=== PATIENT | male | born 1985 | race Native Hawaiian/Other Pacific Islander ===

== ENCOUNTER 2017-07-20 23:54 | Emergency (ER) | payer MEDICAID ==
[2017-07-21 00:28] VITALS: BP 153/74; PULSE 65; RESP 16; TEMP 99.6; O2SAT 100
--- NOTE | 2017-07-21 01:23 | ED PDOC ---
HPI: Male Pain Time Seen by Provider: 07/21/17 00:44 Chief Complaint (Nursing): Groin Pain Chief Complaint (Provider): Groin Pain History Per: Patient History/Exam Limitations: no limitations Onset/Duration Of Symptoms: Gradual (x1 year), Worse Since (x2 months) Current Symptoms Are (Timing): Still Present Additional Complaint(s): 32 year old male presents to ED with complaints of gradual groin discomfort x1 year and has a past medical history of HPV. Patient states he has been experiencing moderate lymph node discomfort that became mildly painful x2 months ago and much worse today. Patient notes concern because he noticed that his lymph node in the groin area became "hard". (-) fever, ulcers, wounds, urinary symptoms, or discharge. PCP: Linda Paniagua Past Medical History Reviewed: Historical Data, Nursing Documentation, Vital Signs Vital Signs: Last Vital Signs Temp 99.6 F 07/21/17 00:26 Pulse 65 07/21/17 00:26 Resp 16 07/21/17 00:26 BP 153/74 H 07/21/17 00:26 Pulse Ox 100 07/21/17 00:26 - Medical History PMH: Denies: No Chronic Diseases Other PMH: HPV STI - Family History Family History: States: No Known Family Hx - Living Arrangements Living Arrangements: With Family - Allergies Allergies/Adverse Reactions: Allergies Allergy/AdvReac Type Severity Reaction Status Date / Time cheese Allergy RASH Verified 07/21/17 00:26 Milk Containing Products Allergy RASH Verified 07/21/17 00:26 Review of Systems ROS Statement: Except As Marked, All Systems Reviewed And Found Negative Constitutional: Negative for: Fever Genitourinary Male: Positive for: Other (groin pain). Negative for: Dysuria, Frequency, Incontinence, Hematuria, Penile Discharge Physical Exam - Reviewed Nursing Documentation Reviewed: Yes Vital Signs Reviewed: Yes - Physical Exam Appears: Positive for: Non-toxic, No Acute Distress. Negative for: Uncomfortable Eye Exam: Positive for: Normal appearance, EOMI, PERRL Respiratory: Negative for: Respiratory Distress Male Genital Exam: Positive for: normal genitalia, other (patient portal representative: ANJANA Taylor). Negative for: epididymal tenderness, scrotum tenderness (R), scrotum tenderness (L), testicular tenderness (R), testicular tenderness (L) - ECG O2 Sat by Pulse Oximetry: 100 (RA) Pulse Ox Interpretation: Normal Medical Decision Making Medical Decision Makin Initial impression: testicular pain, groin pain DDx: epididymitis, r/o testicular torsion, varicocele Initial plan: * UDip * Chlamydia/GC RNA * US TESTICULAR 0130 Discussed with patient that because groin and testicular pain is acute, will do US TESTICULAR to rule out testicular torsion. 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 Provider advised patient that he cannot diagnose or give advice regarding this condition and that the patient needs to follow up with PCP and urologist. 0353 US FINDINGS: Right testicle: Appears small in size compared with the left testicle, measuring 2.3 x 1.1 x 2.1 cm. No masses visualized. Flow seen in the right testicle on color and Doppler imaging , with no evidence of torsion. Right epididymis: Within normal limits in appearance. Measures 8 x 7 x 4 mm. Left testicle: Within normal limits in appearance. Measures 3.8 x 2.5 x 3.5 cm. Flow seen in the left testicle on color and Doppler imaging, with no evidence of torsion. Left epididymis: Within normal limits in appearance. Measures 12 x 7 x 7 mm. Hydrocoele: None seen. Varicocele: Bilateral varicoceles noted. Other findings: Multiple small lymph nodes seen in the left groin region, in the area of pain, none of which appear pathologically enlarged. IMPRESSION: No evidence of testicular torsion or epididymitis. Bilateral varicoceles. Asymmetry in testicular size, with the right testis appearing smaller than the left. This finding is of uncertain etiology and clinical significance. Small lymph nodes in the left groin, with no evidence of pathological lymphadenopathy. See above for remaining findings. Upon re-evaluation, patient is stable for discharge home. Dx: groin pain, varicocele, lymph node symptom Scribe Attestation: Documented by Delmis Tavarez acting as a scribe for Adalberto Brown MD. Scribe Attestation: All medical record entries made by the Scribe were at my direction and personally dictated by me. I have reviewed the chart and agree that the record accurately reflects my personal performance of the history, physical exam, medical decision making, and the department course for this patient. I have also personally directed, reviewed, and agree with the discharge instructions and disposition. Disposition - Clinical Impression Clinical Impression: Varicocele, Groin pain, Lymph node symptom - Disposition Referrals: Al Li Jr., MD [Staff Provider] - Linda Paniagua MD [Primary Care Provider] - Disposition: Routine/Home Disposition Time: 04:00 Condition: GOOD Additional Instructions: Take advil for pain. Follow up with your PCP and urologist within 4-5 days Instructions: Varicocele (ED), Groin Pain (ED)
--- NOTE | 2017-07-21 03:53 | US ---
EXAM: US Scrotum EXAM DATE/TIME: 07/21/2017 1:35 AM CLINICAL HISTORY: 32 years old, male; Pain; Groin pain and scrotum pain; Patient HX: Pt states on/off discomfort <6months, groin pain x few days; Additional info: Left testicular pain groin pain TECHNIQUE: Real-time ultrasound of the scrotum with color Doppler and image documentation. COMPARISON: No relevant prior studies available. FINDINGS: Right testicle: Appears small in size compared with the left testicle, measuring 2.3 x 1.1 x 2.1 cm. No masses visualized. Flow seen in the right testicle on color and Doppler imaging, with no evidence of torsion. Right epididymis: Within normal limits in appearance. Measures 8 x 7 x 4 mm. Left testicle: Within normal limits in appearance. Measures 3.8 x 2.5 x 3.5 cm. Flow seen in the left testicle on color and Doppler imaging, with no evidence of torsion. Left epididymis: Within normal limits in appearance. Measures 12 x 7 x 7 mm. Hydrocoele: None seen. Varicocele: Bilateral varicoceles noted. Other findings: Multiple small lymph nodes seen in the left groin region, in the area of pain, none of which appear pathologically enlarged. IMPRESSION: No evidence of testicular torsion or epididymitis. Bilateral varicoceles. Asymmetry in testicular size, with the right testis appearing smaller than the left. This finding is of uncertain etiology and clinical significance. Small lymph nodes in the left groin, with no evidence of pathological lymphadenopathy. See above for remaining findings.
== END 2017-07-21 04:12 | disposition home or self-care (01) ==
LOC: H.ER 23:54
DX: I86.1 Scrotal varices (principal)

== ENCOUNTER 2017-08-28 13:55 | Emergency (ER) | payer MEDICAID ==
[2017-08-28 14:15] VITALS: BP 103/63; PULSE 76; RESP 16; TEMP 98.4; O2SAT 100
--- NOTE | 2017-08-28 14:49 | ED PDOC ---
HPI: Male Pain Time Seen by Provider: 08/28/17 14:18 Chief Complaint (Nursing): Male Genitourinary Chief Complaint (Provider): Male Genitourinary, Groin Pain History Per: Patient History/Exam Limitations: no limitations Onset/Duration Of Symptoms: Days (x1) Current Symptoms Are (Timing): Still Present Associated Symptoms: denies: Fever, Chills, Nausea, Vomiting, Diarrhea, Back Pain, Urinary Symptoms Additional Complaint(s): 32 year old male with a past medical history of varicocele and epididymitis presents to the ER for evaluation of groin pain, onset last night. Patient states that during his last visit to the ER he was diagnosed with varicocele but was negative for epididymitis. He reports visiting his PMD s/p ER visit, who diagnosed him with epididymitis and recommended he use a warm towel on his groin. Last night, patients states that as he attempted to use the towel, he felt pain to the right side of his groin which prompted his visit today. He denies any fever, chills, back pain, nausea, vomiting, diarrhea, or incontinence. Patient offers no other medical complaints at this time. PMD: non [facility] provider, Demetri Past Medical History Reviewed: Historical Data, Nursing Documentation, Vital Signs Vital Signs: Last Vital Signs Temp 98.4 F 08/28/17 14:11 Pulse 76 08/28/17 14:11 Resp 16 08/28/17 14:11 BP 103/63 08/28/17 14:11 Pulse Ox 100 08/28/17 14:11 - Medical History Other PMH: varicocele and epididymitis - Surgical History Surgical History: No Surg Hx - Family History Family History: States: Unknown Family Hx - Home Medications Home Medications: Ambulatory Orders Medication Instructions Recorded traMADol [Ultram] 50 mg PO Q6H PRN #15 tab 08/28/17 - Allergies Allergies/Adverse Reactions: Allergies Allergy/AdvReac Type Severity Reaction Status Date / Time cheese Allergy RASH Verified 07/21/17 00:26 Milk Containing Products Allergy RASH Verified 07/21/17 00:26 Review of Systems ROS Statement: Except As Marked, All Systems Reviewed And Found Negative Constitutional: Negative for: Fever, Chills Gastrointestinal: Negative for: Nausea, Vomiting, Diarrhea Genitourinary Male: Positive for: Other (pain to right side of testes). Negative for: Incontinence Musculoskeletal: Negative for: Back Pain Physical Exam - Reviewed Nursing Documentation Reviewed: Yes Vital Signs Reviewed: Yes - Physical Exam Appears: Positive for: Well, Non-toxic, No Acute Distress Head Exam: Positive for: ATRAUMATIC, NORMAL INSPECTION, NORMOCEPHALIC Skin: Positive for: Normal Color, Warm, DRY Eye Exam: Positive for: Normal appearance ENT: Positive for: Normal ENT Inspection Neck: Positive for: Normal, Painless ROM Cardiovascular/Chest: Positive for: Regular Rate, Rhythm Respiratory: Positive for: Normal Breath Sounds. Negative for: Accessory Muscle Use, Respiratory Distress Male Genital Exam: Positive for: normal genitalia, no hernia, other (Pt reports pain and superiro testicle however area is non-tender) Back: Positive for: Normal Inspection Extremity: Positive for: Normal ROM Neurologic/Psych: Positive for: Alert, Oriented - ECG O2 Sat by Pulse Oximetry: 100 (RA) Pulse Ox Interpretation: Normal Medical Decision Making Medical Decision Making: Time: 14:20 Impression: 32 year old male with groin pain Plan: --Testicular US Testicular US: FINDINGS: RIGHT TESTICLE: Measures 3.0 x 1.3 x 1.8 cm and remains smaller than the left testicle. Normal echotexture and flow. RIGHT EPIDIDYMIS: Epididymal head measures 0.76 x 0.56 x 0.97 cm. Grossly unremarkable appearance with normal flow. LEFT TESTICLE: Measures 4.3 x 1.9 x 2.8 cm. Normal echotexture and flow. LEFT EPIDIDYMIS: Epididymal head measures 0.9 x 0.9 x 1.09 cm. Grossly unremarkable appearance with normal flow. HYDROCELE: None. VARICOCELE: Small left-sided varicocele OTHER FINDINGS: None. IMPRESSION: Mild asymmetry of the testicles the left-sided which is slightly larger than the right nonspecific. Both testicles exhibit arterial flow. Small left-sided varicocele Scribe Attestation: Documented by Carmencita Paredes, acting as a scribe for Miya Wade PA-C Provider Scribe Attestation: All medical record entries made by the Scribe were at my direction and personally dictated by me. I have reviewed the chart and agree that the record accurately reflects my personal performance of the history, physical exam, medical decision making, and the department course for this patient. I have also personally directed, reviewed, and agree with the discharge instructions and disposition. Disposition - Clinical Impression Clinical Impression: Varicocele - Patient ED Disposition Is Patient to be Admitted: No Counseled Patient/Family Regarding: Diagnosis, Need For Followup - Disposition Disposition: Routine/Home Disposition Time: 18:20 Condition: GOOD Prescriptions: traMADol [Ultram] 50 mg PO Q6H PRN #15 tab PRN Reason: Pain Instructions: Varicocele Forms: [email or web address] (Pashto)
--- NOTE | 2017-08-28 17:04 | US ---
HISTORY: testicular pain, acute on chronic TECHNIQUE: Realtime sonography through the scrotum with color and doppler flow. COMPARISON: Comparison made with prior scrotal ultrasound dated 07/21/2017 FINDINGS: RIGHT TESTICLE: Measures 3.0 x 1.3 x 1.8 cm and remains smaller than the left testicle. Normal echotexture and flow. RIGHT EPIDIDYMIS: Epididymal head measures 0.76 x 0.56 x 0.97 cm. Grossly unremarkable appearance with normal flow. LEFT TESTICLE: Measures 4.3 x 1.9 x 2.8 cm. Normal echotexture and flow. LEFT EPIDIDYMIS: Epididymal head measures 0.9 x 0.9 x 1.09 cm. Grossly unremarkable appearance with normal flow. HYDROCELE: None. VARICOCELE: Small left-sided varicocele OTHER FINDINGS: None. IMPRESSION: Mild asymmetry of the testicles the left-sided which is slightly larger than the right nonspecific. Both testicles exhibit arterial flow. Small left-sided varicocele
== END 2017-08-28 18:58 | disposition home or self-care (01) ==
LOC: H.ER 13:55
DX: I86.1 Scrotal varices (principal); G89.29 Other chronic pain